=== PATIENT | male | born 1935 | race African-American/Black ===

== ENCOUNTER 2017-09-29 22:45 | Emergency (ER) | payer OTHER ==
[~2017-09-29] VITALS: Ht 177.8 cm; Wt 82.0 kg
[2017-09-29] MEDS ORDERED: ASPIRIN 81MG TABLET PO ONE (23:15)
[2017-09-30 00:25] LABS: BASOPHILS % 0.2 % (0.0-2.0); EOSINOPHILS % 0.7 % (0.0-5.0); HEMATOCRIT. 40.2 % (42.0-52.0); HEMOGLOBIN. 13.2 g/dL (14.0-18.0); LYMPHOCYTES % 19.3 % (20.0-50.0); MEAN CORPUSCULAR HEMOGLOBIN 27.5 pg (28.0-32.0); MEAN CORPUSCULAR VOLUME 83.6 fL (80.0-94.0); MEAN PLATELET VOLUME 9.3 fl (7.4-10.4); MONOCYTES % 8.6 % (2.0-8.0); NEUTROPHILS % 71.2 % (40.0-76.0); PLATELET 87 x1000/uL (130-400); RED BLOOD CELL COUNT 4.81 mill/uL (4.7-6.1); RED CELL DISTRIBUTION WIDTH 16.5 % (11.6-14.6)
[2017-09-30 00:32] LABS: INR 2.8; PARTIAL THROMBOPLASTIN TIME 43.6 sec (23.4-31.0); PROTHROMBIN TIME 29.8 sec (9.4-11.6)
[2017-09-30 00:33] LABS: CHLORIDE 105 mEq/L (98-107)
[2017-09-30 00:38] LABS: TROPONIN I < 0.02 ng/mL (0.00-0.04)
[2017-09-30 01:29] VITALS: BP 126/98
[2017-09-30 01:37] LABS: CLARITY URINE CLEAR (CLEAR); COLOR URINE YELLOW (YELLOW); KETONES URINE NEGATIVE (NEGATIVE); LEUKOCYTE ESTERASE URINE 2+ (NEGATIVE); NITRITE URINE NEGATIVE (NEGATIVE); OCCULT BLOOD URINE NEGATIVE (NEGATIVE); PH URINE 5.5 (4.5-8.0); PROTEIN URINE TRACE (NEGATIVE); SPECIFIC GRAVITY URINE 1.016 (1.005-1.030)
== END 2017-09-30 02:11 | disposition home or self-care (01) ==
LOC: ER 22:45 → CANBEDREQ 09-30 06:18
DX: E11.649 Type 2 diabetes mellitus with hypoglycemia without coma (principal); I10 Essential (primary) hypertension; E78.00 Pure hypercholesterolemia, unspecified; F03.90 Unspecified dementia, unspecified severity, without behavioral disturbance, psychotic disturbance, mood disturbance, and anxiety; I48.91 Unspecified atrial fibrillation; N40.0 Benign prostatic hyperplasia without lower urinary tract symptoms; Z88.0 Allergy status to penicillin; Z95.1 Presence of aortocoronary bypass graft
CPT/HCPCS: 36415; 71045; 80053; 81003; 82962; 83605; 83880; 84484; 85025; 85610; 85730; 87040; 93005; 99285